=== PATIENT | female | born 1985 | race Caucasian/White ===

== ENCOUNTER 2016-08-31 14:08 | Emergency (ER) | payer OTHER ==
[~2016-08-31] VITALS: Ht 162.6 cm; Wt 138.6 kg
[2016-08-31 14:18] VITALS: BP 162/106; TEMP 36.8; Ht 162.6 cm; Wt 138.6 kg
--- NOTE | 2016-08-31 15:19 | DIAGNOSTIC IMAGING REPORT ---
L-SPINE MIN 4 VIEWS ROUTINE CLINICAL HISTORY: LEFT LOW BACK PAIN COMPARISON: None FINDINGS: There is 4 mm anterolisthesis of L5 on S1. There is moderate disc space narrowing with vacuum disc phenomenon and osteophytosis at this level. There may be bilateral L5 pars defects. Alignment is otherwise anatomic. There is no acute fracture. There is mild multilevel facet arthrosis. Sacroiliac joints are intact. IMPRESSION: 1. No acute lumbar spine fracture. 2. Grade I anterolisthesis of L5 on S1 with possible bilateral L5 pars defects. 3. Moderate disc space narrowing and osteophytosis at L5-S1. Electronically signed by: Fredi Julien M.D. 08/31/2016 3:17 PM Dictated Date/Time: 08/31/2016 3:15 PM
[2016-08-31] MEDS ORDERED: HYDROCODONE/ACETAMOPHEN 5/325MG TAB PO STA (15:36)
[2016-08-31] MEDS ORDERED: CYCL10TA6 PO (15:39)
[2016-08-31] MEDS ORDERED: HYDR-5688 PO (15:39)
--- NOTE | 2016-08-31 15:40 | EMERGENCY ROOM VISIT NOTE ---
ED Visit Note First contact with patient: 14:26 CHIEF COMPLAINT: Low back pain 2 days HISTORY OF PRESENT ILLNESS: Patient is a 22-year-old white female who presents to the emergency department for evaluation of left-sided low back pain that started about 2 days ago. She denies any falls or direct trauma but does know that she was slightly more active during the day prior to the pain starting. It is located in the midline of her low back radiating slightly to the left side and slightly into her buttock. It does not radiate down into her leg. Pain is essentially constant and worsened by any type of movement, including position changes, standing, sitting or walking. She states that it is dull in nature. She rates it a 4/10 presently. She has tried Aleve, a topical pain ointment, and stretches. She had pain similar to this in the past and was seen by the chiropractor. The pain resolved on its own. She denies any numbness, tingling or weakness in her lower extremities. No bowel or bladder incontinence or urinary symptoms. REVIEW OF SYSTEMS:Review of systems as per HPI. All other systems reviewed were negative. 10 systems reviewed. PMH: Electronic medical records are reviewed and summarized as above/below. See Problem List. SOCIAL HISTORY: Patient lives at home with her family. Nonsmoker. She is employed. PHYSICAL EXAM: Vital Signs: Reviewed Nurse's notes. CONSTITUTIONAL: Patient is a morbidly obese 30-year-old white female who was awake and alert and sitting upright on the gurney in mild distress due to her back pain. She has some discomfort noted with position changes. HEART: Regular rate and rhythm. LUNGS: Clear to auscultation. ABDOMEN: Soft, non-tender, no masses or organs felt. Bowel sounds normoactive. BACK: Tenderness in the left lumbar paraspinous, extending over the left hemipelvis. No tenderness over the spinous processes of the lumbar vertebrae. Range of motion is limited secondary to discomfort. She is able to toe and heel rise without difficulty. LEGS: Normal strength including dorsi-flexion and plantar flexion of the feet. Negative bilateral straight leg raising, normal and symmetrical knee and ankle reflexes. EMERGENCY DEPARTMENT COURSE: The patient was seen and evaluated as above. Her old records were reviewed. Initially she declined any medication for discomfort. Lumbar spine x-rays were obtained. She has evidence for anterolisthesis and disc space narrowing at the L5-S1 level. Her pain is largely in the low back and I suspect is more muscular or ligamentous. She did not have any radicular symptoms at this time. I do not suspect acute cord compression, disc herniation or cauda equina syndrome. Supportive care measures were discussed. She was encouraged to heat, rest, and use anti- inflammatory medicines. She was prescribed Waban and Flexeril for pain. She was given a note to be out of work for the next 4 days, and was advised to follow-up with her primary care physician if she is not feeling any better. Patient was reviewed in the [facility] Prescription Drug Monitoring Program, and there was no record noted for this patient. L-SPINE MIN 4 VIEWS ROUTINE CLINICAL HISTORY: LEFT LOW BACK PAIN COMPARISON: None FINDINGS: There is 4 mm anterolisthesis of L5 on S1. There is moderate disc space narrowing with vacuum disc phenomenon and osteophytosis at this level. There may be bilateral L5 pars defects. Alignment is otherwise anatomic. There is no acute fracture. There is mild multilevel facet arthrosis. Sacroiliac joints are intact. IMPRESSION: 1. No acute lumbar spine fracture. 2. Grade I anterolisthesis of L5 on S1 with possible bilateral L5 pars defects. 3. Moderate disc space narrowing and osteophytosis at L5-S1. Problem List Medical Problems: (1) Asthma Status: Chronic (2) Morbid obesity with BMI of 50.0-59.9, adult Status: Chronic Surgical Problems: (1) Hx of cholecystectomy Status: Resolved Current/Historical Medications Scheduled PRN Cyclobenzaprine Hcl (Flexeril), 10 MG PO TID PRN for Muscle Spasms Hydrocodone/Acetaminophen 5MG/325MG (Waban 5MG/325MG), 1-2 TABLETS PO Q4 PRN for Pain Allergies Coded Allergies: Cephalosporins (Verified Allergy, Unknown, CEFZIL, 08/31/16) Vital Signs Date Time Temp Pulse Resp B/P Pulse Ox O2 Delivery O2 Flow Rate FiO2 08/31/16 15:47 84 95 Room Air 08/31/16 14:18 36.8 80 18 162/106 96 Room Air Medications Administered Medications (Trade) Dose Ordered Sig/Jahaira Route Start Time Stop Time Status Last Admin Dose Admin Acetaminophen/ Hydrocodone Bitart (Waban 5/325 Tab) 2 tab NOW STAT PO 08/31/16 15:36 08/31/16 15:37 DC 08/31/16 15:46 2 TAB Departure Information Impression Primary Impression: Low back pain Qualified Codes: M54.5 - Low back pain Prescriptions Hydrocodone/Acetaminophen 5MG/325MG (Waban 5MG/325MG) Tab 1-2 TABLETS PO Q4 Y for Pain, #20 TAB For Initial Treatment Prov: Lakesha Beach PA 08/31/16 Cyclobenzaprine Hcl (FLEXERIL) 10 Mg Tab 10 MG PO TID Y for Muscle Spasms, #30 TAB Prov: Lakesha Beach PA 08/31/16 Referrals No Doctor, Assigned (PCP) Patient Instructions My [facility] Additional Instructions DO NOT drive, drink alcohol, operate machinery, or perform dangerous activities today. You were given medications in the ER that can affect your ability to safely function or operate a vehicle. Hydrocodone/Acetaminophen (Waban) 5/325 mg: Take 1-2 pills every four hours for breakthrough pain. Avoid alcohol, operating machinery or dangerous equipment, working on ladders or roofs, DRIVING, or situations where being under the influence may be dangerous. It is recommended to use an togp-sws-zcahpwy stool softener such as Colace, 100mg twice daily while taking this medication to avoid constipation. Cyclobenzaprine (Flexeril) 10 mg: Take 1 pills 3 times daily as needed for muscle spasms.. Avoid alcohol, operating machinery or dangerous equipment, working on ladders or roofs, DRIVING, or situations where being under the influence may be dangerous. Ibuprofen(Motrin, Advil) may be used for fever or pain. Use 600mg every six hours as needed. Take with food. Avoid using more than 2400mg in a 24 hour period. Do not use 2400mg per day for more than three consecutive days without physician direction. Prolonged inappropriate use can lead to stomach upset or ulcers. This medication can be taken if you need to drive, work, or perform activities which may be dangerous when taking narcotic pain medication. (AND/OR) Acetaminophen(Tylenol) may be used for fever or pain. Use 1000mg every six hours as needed. Avoid using more than 3000mg in a 24 hour period. This medication can be taken if you need to drive, work, or perform activities which may be dangerous when taking narcotic pain medication. Rest and avoid heavy lifting until your symptoms resolve and then gradually return to full activity. A good rule of thumb is if it hurts your back to perform a certain activity, then it should be avoided until you are healthy again. A heating pad, warm compresses, or a hot shower may help with tight muscles and can be done several times a day as needed. Continue current medications. Return to the ER immediately for any numbness, tingling, severe pain, loss of control of your bowels or bladder, inability to walk, or as needed. Follow up with your primary care physician within 3-5 days for a recheck of your current condition.
[2016-08-31 15:47] VITALS: PULSE 84; O2SAT 95
== END 2016-08-31 16:01 | disposition home or self-care (01) ==
LOC: C.EDB 14:09 → C.EDD 16:01
DX: M54.5 Low back pain (principal); E66.01 Morbid (severe) obesity due to excess calories; Z68.43 Body mass index [BMI] 50.0-59.9, adult; M43.17 Spondylolisthesis, lumbosacral region; J45.909 Unspecified asthma, uncomplicated

== ENCOUNTER → 2017-03-28 | Outpatient (CLI) | payer OTHER ==
[2017-03-28 12:56] LABS: ALT/SGPT 25 U/L (12-78); BLOOD UREA NITROGEN 21 mg/dl (7-18); BUN/CREATININE RATIO 25.8 (10-20); CALCIUM 9.2 mg/dl (8.5-10.1); CARBON DIOXIDE 29 mmol/L (21-32); CHLORIDE 104 mmol/L (98-107); CHOLESTEROL 133 mg/dl (0-200); CREATININE 0.81 mg/dl (0.60-1.20); GLUCOSE 87 mg/dl (70-99); SODIUM 138 mmol/L (136-145)
[2017-03-28 13:02] LABS: BASO % 0.6 %; BASO ABS # 0.04 K/uL (0-0.2); COMPLETE YES; EOS % 1.1 %; HEMATOCRIT 45.4 % (37-47); IG% 0.2 %; LYMPH % 27.8 %; LYMPH ABS # 1.81 K/uL (1.2-3.4); MEAN CELL VOLUME 83.3 fL (80-100); MEAN CORPUSCULAR HEMOGLOBIN 26.1 pg (25-34); MEAN CORPUSCULAR HGB CONC 31.3 g/dl (32-36); MONO % 7.8 %; NEUT % 62.5 %; PLATELET COUNT 303 K/uL (130-400); RED BLOOD COUNT 5.45 M/uL (4.2-5.4); WHITE BLOOD COUNT 6.52 K/uL (4.8-10.8)
[2017-03-28 13:07] LABS: ALB/GLOB RATIO 0.9 (0.9-2); ALKALINE PHOSPHATASE 81 U/L (45-117); AST/SGOT 14 U/L (15-37); HDL CHOLESTEROL 44 mg/dl; LDL CHOLESTEROL CALCULATED 72 mg/dl; TRIGLYCERIDES 83 mg/dl (0-150); VERY LOW DENSITY LIPOPROT CALC 17 mg/dl
[2017-03-28 13:11] LABS: ESTIMATED AVERAGE GLUCOSE 114 mg/dl; HA1C FLAG Normal (Normal)
== END | disposition home or self-care (01) ==
LOC: C.LABPVFM 10:47
PROVIDERS: ATTEND Neuromusculoskeletal Medicine & OMM
DX: Z00.00 Encounter for general adult medical examination without abnormal findings (principal); Z68.45 Body mass index [BMI] 70 or greater, adult

== ENCOUNTER → 2017-05-01 | Outpatient (CLI) | payer OTHER ==
--- NOTE | 2017-05-01 12:12 | DIAGNOSTIC IMAGING REPORT ---
RIGHT ANKLE MIN 3 VIEWS ROUTINE CLINICAL HISTORY: JOINT PAIN OF ANKLE AND FOOT RT Right pain COMPARISON: None. DISCUSSION: Degenerative osteophytic change of both medial as well as lateral malleolus. Ankle mortise is aligned anatomically. Small heel spur. No evidence for fracture or dislocation. There is no evidence for soft tissue swelling. IMPRESSION: Degenerative change of the medial and lateral malleolus. Small heel spur. The above report was generated using voice recognition software. It may contain grammatical, syntax or spelling errors. Electronically signed by: Sky Morris M.D. 05/01/2017 12:11 PM Dictated Date/Time: 05/01/2017 12:08 PM
--- NOTE | 2017-05-01 12:14 | DIAGNOSTIC IMAGING REPORT ---
RIGHT FOOT MIN 3 VIEWS ROUTINE CLINICAL HISTORY: JOINT PAIN OF ANKLE AND FOOT RT Right pain COMPARISON: None. DISCUSSION: Mild degenerative change of the intertarsal as well as tarsometatarsal joints. Small heel spur. No well-defined acute bony abnormality. There is no evidence for soft tissue swelling. IMPRESSION: Mild degenerative change. Small heel spur. No acute bony abnormality. The above report was generated using voice recognition software. It may contain grammatical, syntax or spelling errors. Electronically signed by: Sky Morris M.D. 05/01/2017 12:13 PM Dictated Date/Time: 05/01/2017 12:11 PM
== END | disposition home or self-care (01) ==
LOC: C.RADPV 11:55
PROVIDERS: ATTEND Nurse Practitioner
DX: M19.071 Primary osteoarthritis, right ankle and foot (principal); M77.31 Calcaneal spur, right foot

== ENCOUNTER 2018-10-17 13:38 | Inpatient (IN) ==
--- NOTE | 2018-10-17 14:04 | Emergency Department Note ---
History of Present Illness General Chief complaint: Shortness of Breath/Dyspnea Stated complaint: SOB,DIZZY Time Seen by Provider: 10/17/18 13:46 History of Present Illness Maximum Pain Intensity: 2 This patient is a 32-year-old female who presents to the emergency department complaining of shortness of breath that she noticed when she woke up this morning. It is worse with exertion and better with rest. She also experienced some pressure like chest pain in triage. That has now dissipated. She denies having these symptoms in the past. She has not taken anything cvuy-dwk-[id number] for her symptoms. She denies any recent illnesses such as fever or cough. No history of cardiac or pulmonary disease. She does not smoke. No oral contraceptives. No recent travel or trauma. 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 Beliefs That Will Affect Care: None Current Living Situation: Parent Other Information That Helps Us Care for You: No Feels Safe at Home: Yes Safety Concerns: Feels Safe At This Time Smoking Status: Never smoker Hx Alcohol Use: Yes Hx Substance Use: No Review of Systems A total of 10 systems reviewed and were otherwise negative Physical Exam Vital Signs Vital Signs - 24 hr 10/17/18 13:38 10/17/18 13:40 10/17/18 15:31 Temperature 36.5 C Temperature Source Oral Sepsis Recent Fever Within 48 Hours No Sepsis New/Unexplained Change in Mental Status No Sepsis Action Taken by Nursing No Action Required Pulse Rate 84 73 Pulse Rate from SpO2 Sensor 71 Respiratory Rate 18 24 Respiratory Effort / Characteristics Spontaneous Non-Labored Spontaneous Respiratory Depth Normal Normal Respiratory Pattern Regular Regular Blood Pressure 196/90 H 179/101 H Blood Pressure Mean 125 127 Blood Pressure Position Sitting Pulse Oximetry 97 95 Pulse Oximetry [Exercises] Oxygen Delivery Method Room Air Room Air Room Air 10/17/18 16:00 10/17/18 16:09 10/17/18 16:30 Temperature Temperature Source Sepsis Recent Fever Within 48 Hours Sepsis New/Unexplained Change in Mental Status Sepsis Action Taken by Nursing Pulse Rate 81 71 Pulse Rate from SpO2 Sensor 71 Respiratory Rate 25 H 21 Respiratory Effort / Characteristics Respiratory Depth Respiratory Pattern Blood Pressure 165/93 H Blood Pressure Mean 117 Blood Pressure Position Pulse Oximetry 99 Pulse Oximetry [Exercises] 86 L Oxygen Delivery Method Room Air Room Air 10/17/18 17:00 10/17/18 17:30 Temperature Temperature Source Sepsis Recent Fever Within 48 Hours Sepsis New/Unexplained Change in Mental Status Sepsis Action Taken by Nursing Pulse Rate 73 77 Pulse Rate from SpO2 Sensor 73 77 Respiratory Rate 25 H 26 H Respiratory Effort / Characteristics Respiratory Depth Respiratory Pattern Blood Pressure Blood Pressure Mean Blood Pressure Position Pulse Oximetry 97 98 Pulse Oximetry [Exercises] Oxygen Delivery Method Room Air Room Air Constitutional WD/WN, vitals as above Morbidly obese female Eyes EOM intact bilaterally ENMT external ear and nose normal, oropharynx normal Neck trachea midline Respiratory normal respiratory effort, lungs clear to auscultation Cardiovascular RRR, no murmur, no edema Gastrointestinal (Abdomen) Soft. Bowel sounds present. Musculoskeletal no cyanosis or clubbing, extremities motor strength 5/5 Skin no rashes, warm and dry Neurologic Alert and oriented x3. No focal motor deficits. Psychiatric Acting appropriately Course Patient was seen and examined Vital signs including blood pressure were reviewed medications list was verified with patient Labs were obtained, and a saline lock was established And EKG was performed and reviewed. The patient was put on a monitor. Imaging was performed and reviewed. Upon reevaluation, the patient said her breathing was slightly better. We discussed her workup. She voiced understanding. She was also seen by my supervising physician who is in agreement with my plan. After CT, the patient was reevaluated. An ambulatory trial was performed. The patient dropped her oxygen saturation to 86%. The case was discussed with case management. He was subsequently discussed with the [facility] hospitalist in addition to pulmonary staff nuclear weapons officer. The [facility] hospitalist group kindly agreed to evaluate the patient for possible inpatient workup and treatment. The patient was in agreement. Consultations Consultation #1: Dr. Pisano Consultation #2: Dr. Haile Administered Medications Ioversol (Optiray 320 125ml) 119 ml IV ONCE PRN PRN Reason: Interaction Checking Stop: 10/21/18 15:15 Last Admin: 10/17/18 15:16 Dose: 119 ml Documented by: [id number] Medical Decision Making Medical Records Attestation: I reviewed the patient's medical records. Home Medications Current Medication List: was personally reviewed by me Laboratory Data Attestation: I reviewed the patient's lab results. Result diagrams: 10/17/18 14:11 10/17/18 14:11 Lab Results 10/17/18 10/17/18 10/17/18 Range/Units 14:11 14:11 14:11 WBC 6.77 (4.8-10.8) K/uL RBC 4.89 (4.2-5.4) M/uL Hgb 13.1 (12.0-16.0) g/dL Hct 41.1 (37-47) % MCV 84.0 (80-100) fL MCH 26.8 (25-34) pg MCHC 31.9 L (32-36) g/dL RDW Std Deviation 44.4 (36.4-46.3) fL RDW Coeff of Adali 14.5 (11.5-14.5) % Plt Count 228 (130-400) K/uL MPV 9.8 (7.4-10.4) fL Immature Gran % (Auto) 0.3 % Neut % (Auto) 72.6 % Lymph % (Auto) 20.1 % Gregg % (Auto) 4.9 % Eos % (Auto) 1.5 % Baso % (Auto) 0.6 % Immature Gran # (Auto) 0.02 (0.00-0.02) K/uL Neut # (Auto) 4.92 (1.4-6.5) K/uL Lymph # (Auto) 1.36 (1.2-3.4) K/uL Gregg # (Auto) 0.33 (0.11-0.59) K/uL Eos # (Auto) 0.10 (0-0.5) K/uL Baso # (Auto) 0.04 (0-0.2) K/uL PT 10.9 (9.0-12.0) Seconds INR 1.1 (0.9-1.1) D-Dimer (0-500) ug/L FEU Sodium 137 (136-145) mmol/L Potassium 3.7 (3.5-5.1) mmol/L Chloride 104 (98-107) mmol/L Carbon Dioxide 28 (21-32) mmol/L Anion Gap 6.0 (3-11) BUN 18 (7-18) mg/dl Creatinine 0.75 (0.6-1.2) mg/dl Est Cr Clr Drug Dosing 170.5 ml/min Est GFR ( Amer) 124.0 Est GFR (Non-Af Amer) 107.0 BUN/Creatinine Ratio 24.4 H (10-20) Glucose 80 (70-99) mg/dl Calcium 8.4 L (8.5-10.1) mg/dl Total Bilirubin 0.7 (0.2-1) mg/dl AST 16 (15-37) U/L ALT 26 (12-78) U/L Alkaline Phosphatase 67 (45-117) U/L Troponin I < 0.015 (0-0.045) ng/ml NT-Pro-B Natriuret Pep 139 (0-450) pg/ml Total Protein 7.8 (6.4-8.2) gm/dl Albumin 3.7 (3.4-5.0) gm/dl Globulin 4.1 H (2.5-4.0) gm/dl Albumin/Globulin Ratio 0.9 (0.9-2) 10/17/18 10/17/18 Range/Units 14:11 14:11 WBC (4.8-10.8) K/uL RBC (4.2-5.4) M/uL Hgb (12.0-16.0) g/dL Hct (37-47) % MCV (80-100) fL MCH (25-34) pg MCHC (32-36) g/dL RDW Std Deviation (36.4-46.3) fL RDW Coeff of Adali (11.5-14.5) % Plt Count (130-400) K/uL MPV (7.4-10.4) fL Immature Gran % (Auto) % Neut % (Auto) % Lymph % (Auto) % Gregg % (Auto) % Eos % (Auto) % Baso % (Auto) % Immature Gran # (Auto) (0.00-0.02) K/uL Neut # (Auto) (1.4-6.5) K/uL Lymph # (Auto) (1.2-3.4) K/uL Gregg # (Auto) (0.11-0.59) K/uL Eos # (Auto) (0-0.5) K/uL Baso # (Auto) (0-0.2) K/uL PT (9.0-12.0) Seconds INR (0.9-1.1) D-Dimer 510 H* (0-500) ug/L FEU Sodium (136-145) mmol/L Potassium (3.5-5.1) mmol/L Chloride (98-107) mmol/L Carbon Dioxide (21-32) mmol/L Anion Gap (3-11) BUN (7-18) mg/dl Creatinine (0.6-1.2) mg/dl Est Cr Clr Drug Dosing ml/min Est GFR ( Amer) Est GFR (Non-Af Amer) BUN/Creatinine Ratio (10-20) Glucose (70-99) mg/dl Calcium (8.5-10.1) mg/dl Total Bilirubin (0.2-1) mg/dl AST (15-37) U/L ALT (12-78) U/L Alkaline Phosphatase (45-117) U/L Troponin I (0-0.045) ng/ml NT-Pro-B Natriuret Pep Cancelled (0-450) pg/ml Total Protein (6.4-8.2) gm/dl Albumin (3.4-5.0) gm/dl Globulin (2.5-4.0) gm/dl Albumin/Globulin Ratio (0.9-2) Imaging Data Attestation: I personally reviewed and interpreted this imaging study as follows: Radiologist's Impression: Chest x-ray IMPRESSION: 1. Cardiomegaly with pulmonary vascular prominence suggesting volume overload. This is atypical in a patient of this age. Correlate clinically to exclude risk factors for pulmonary embolus or pulmonary artery hypertension. Electronically signed by: Marcus Pennington M.D. 10/17/2018 2:21 PM CTA chest IMPRESSION: 1. No evidence for central pulmonary embolus. 2. Small patchy densities within the superior segment of the left lower lobe. This may represent a pneumonia. Atelectasis could also have a similar appearance. 3. Mosaic attenuation throughout the lungs consistent with air trapping. This raises the possibility of small airways disease. 4. A 4 mm indeterminate pulmonary nodule within the left lower lobe. 5. Prominent mediastinal and axillary lymph nodes as well as a single mildly enlarged right hilar lymph node. The spleen is also enlarged. This is indeterminate. A lymphoproliferative disorder could result in this appearance but is considered less likely. Clinical correlation recommended. Electronically signed by: Brendan Sumner M.D. 10/17/2018 3:43 PM Dictated: 10/17/18 1530 ECG Data Indication: chest pain Rate (beats per minute): 78 Rhythm: normal sinus Comparison ECG Date: no prior available Additional Comments: Incomplete right bundle branch block. Blood Pressure Blood Pressure Findings: Elevated blood pressure Blood Pressure Disposition: Referred to patients primary care provider MDM Narrative Differential diagnosis: Pulmonary embolus, myocarditis, acute myocardial infarction, cardiac arrhythmia, anemia, thyroid abnormality, pneumothorax, pneumonia, bronchitis, pericarditis, electrolyte imbalance, among others This patient is a 32-year-old female who presents to the emergency department complaining of dyspnea, worse with exertion and chest pain that started this morning when she woke up. On exam, she was initially not hypoxic. She was afebrile. Her lungs sounded fairly clear. Her labs reveal no leukocytosis. Troponin is negative. EKG did not show any signs of ischemia or infarction. Due to a history of morbid obesity and chest x-ray findings, we proceeded with a CT. This was consistent with a possible pneumonia and mosaic appearance. The etiology of this is unclear as the patient has not had any infectious symptoms. During the ambulatory trial, the patient became hypoxic; therefore, it was felt that the patient should be evaluated by the hospitalist service for possible inpatient treatment. The patient was in agreement. Impression & Plan Pneumonia Discharge Plan Visit Data Chief Complaint: Shortness of Breath/Dyspnea Stated Complaint: SOB,DIZZY ED Provider: Terry Ferreira ED Midlevel Provider: Maribel Quintana Discharge Problem: Pneumonia Patient Disposition: Admitted As Inpatient Condition: Fair Forms Stand Alone Forms: My [facility] Prescriptions Prescriptions: No Action diclofenac sodium 75 mg tablet,delayed release (DR/EC) 75 mg PO BID RF: 0 Referrals Referrals: Erika Salter CRNP [Primary Care Provider] -
--- NOTE | 2018-10-17 14:22 | XRay Report ---
XR chest 1V portable CLINICAL HISTORY: 32 years-old Female presenting with syncope. TECHNIQUE: Portable upright AP view of the chest was obtained. COMPARISON: None. FINDINGS: Cardiac silhouette mildly enlarged with pulmonary vascular prominence. Prominence of bilateral laura l ikely vascular. No focal opacity. No large effusion or pneumothorax. Osseous structures normal. Upper abdomen normal. IMPRESSION: 1. Cardiomegaly with pulmonary vascular prominence suggesting volume overload. This is atypical in a patient of this age. Correlate clinically to exclude risk factors for pulmonary embolus or pulmonary artery hypertension. Electronically signed by: Marcus Pennington M.D. 10/17/2018 2:21 PM
[2018-10-17 14:23] LABS: Basophils # (auto) 0.04 K/uL (0-0.2); Basophils % (auto) 0.6 %; Eosinophils % (auto) 1.5 %; Hematocrit (blood only) 41.1 % (37-47); Hemoglobin 13.1 g/dL (12.0-16.0); Immature Granulocytes # (auto) 0.02 K/uL (0.00-0.02); Immature Granulocytes % (auto) 0.3 %; Lymphocytes # (auto) 1.36 K/uL (1.2-3.4); Lymphocytes % (auto) 20.1 %; Mean Corpuscular Hgb Conc 31.9 g/dL (32-36); Mean Platelet Volume 9.8 fL (7.4-10.4); Monocytes # (auto) 0.33 K/uL (0.11-0.59); Monocytes % (auto) 4.9 %; Neutrophils # (auto) 4.92 K/uL (1.4-6.5); Neutrophils % (auto) 72.6 %; Platelet Count 228 K/uL (130-400); RDW Coefficient of Variation 14.5 % (11.5-14.5); RDW Standard Deviation 44.4 fL (36.4-46.3); Red Blood Count 4.89 M/uL (4.2-5.4); White Blood Count 6.77 K/uL (4.8-10.8)
[2018-10-17 14:35] LABS: INR 1.1 (0.9-1.1); Prothrombin Time 10.9 Seconds (9.0-12.0)
[2018-10-17 14:42] LABS: Alanine Aminotransferase 26 U/L (12-78); Albumin Level 3.7 gm/dl (3.4-5.0); Aspartate Aminotransferase 16 U/L (15-37); BUN Creatinine Ratio 24.4 (10-20); Blood Urea Nitrogen 18 mg/dl (7-18); Calcium 8.4 mg/dl (8.5-10.1); Carbon Dioxide 28 mmol/L (21-32); Chloride 104 mmol/L (98-107); Creatinine Clr Calc Pharmacy 170.5 ml/min; Glucose 80 mg/dl (70-99); Potassium 3.7 mmol/L (3.5-5.1); Sodium 137 mmol/L (136-145)
[2018-10-17 14:47] LABS: Albumin Globulin Ratio 0.9 (0.9-2); Alkaline Phosphatase 67 U/L (45-117); Bilirubin,Total 0.7 mg/dl (0.2-1); Globulin 4.1 gm/dl (2.5-4.0); Total Protein 7.8 gm/dl (6.4-8.2); Troponin I < 0.015 ng/ml (0-0.045)
[2018-10-17] MEDS ORDERED: OPTIRAY 320 125ml IV PRN (15:16)
[2018-10-17 15:25] LABS: NT Pro B Type Natriuretic Pept 139 pg/ml (0-450)
--- NOTE | 2018-10-17 15:45 | CT Scan Report ---
CHEST CTA for PULMONARY ARTERIES CT DOSE: 742.91 mGy.cm HISTORY: Atypical chest pain. Short of breath. TECHNIQUE: Multiaxial CT images of the chest were performed following the intravenous administration of contrast to evaluate the pulmonary arteries. Maximal intensity projection images were also obtaine d. A dose lowering technique was utilized adhering to the principles of ALARA. COMPARISON STUDY: None. FINDINGS: Normal caliber thoracic aorta with no evidence for dissection area the heart is normal in s ize. No pleural or pericardial effusions. The majority of the segmental and subsegmental pulmonary ar teries are essentially nondiagnostic due to the artifact from the patient's large body habitus. The m ain and lobar pulmonary arteries are patent. There is a slightly enlarged right hilar lymph node dianne uring 12 mm in short axis diameter. Prominent axillary lymph nodes measure subcentimeter in traction diameter. Hepatic steatosis. The spleen is enlarged measuring 17 cm. Cholecystectomy. Prominent media stinal and left hilar lymph nodes measure subcentimeter in short axis diameter. Healed right lateral sixth rib fracture. No acute fractures identified. No pneumothorax. The central airways are patent. S mall patchy densities within the superior segment of the left lower lobe medially. Mosaic attenuation within the lungs consistent with air trapping. This may represent small airways disease. A 4 mm nodu le within the left lower lobe on image 141. Nodular thickening along the right minor fissure which me asures 8 mm. This is likely benign and has a flattened appearance on the coronal views. IMPRESSION: 1. No evidence for central pulmonary embolus. 2. Small patchy densities within the superior segment of the left lower lobe. This may represent a pn eumonia. Atelectasis could also have a similar appearance. 3. Mosaic attenuation throughout the lungs consistent with air trapping. This raises the possibility of small airways disease. 4. A 4 mm indeterminate pulmonary nodule within the left lower lobe. 5. Prominent mediastinal and axillary lymph nodes as well as a single mildly enlarged right hilar lym ph node. The spleen is also enlarged. This is indeterminate. A lymphoproliferative disorder could res ult in this appearance but is considered less likely. Clinical correlation recommended. Electronically signed by: Brendan Sumner M.D. 10/17/2018 3:43 PM
[2018-10-17 16:33] LABS: D Dimer 510 ug/L FEU (0-500)
--- NOTE | 2018-10-17 17:14 | History & Physical Report ---
Date of Service October 17, 2018 Assessment & Plan (1) Pneumonia: 32 y/o F Hx Morbid obesity only. She states she woke up AM with shortness of breath. She denies a fever or congestion. She does have a slight cough which has not been particularly productive. A CXR was equivocal and she procee ded to CT therefore. This demonstrated small patchy densities within the superior segment of the left lower lobe which may be consistent with PNM or atalectasis. Additional findings included mosaic attenuation throughout the lungs consistent with air trapping raising the possibility of small airway disease, a 4 mm indeterminate pulmonary nodule within the left lower lobe and prominent mediastinal and axillary lymph nodes as well as a single mildly enlarged right hilar lymph node. The spleen is also enlarged. A lymphoproliferative process could not be ruled out although the diagnosis is less likely per the radiology read. The pt appeared fairly comfortable in the ER and was sating at 97% lying down. However, she went down to 86% with any ambulation. She is admitted overnight therefore for treatment of presumed PNM. We will treat with doxycycline and scheduled nebs overnight. If she does not show improvement or worsens, pulmonary has offered to consult. Regardless of whether or not she improves in the short-term, she will need outpt follow-up, likely with a assembler final initially do to the findings on her CT which are not likely related to acute infection including small airway disease and an enlarged spleen. Full code - Heparin prophylaxis Total time for this admit including review of labs, meds, imaging, records - discussion with pt and ER attending - 37 min Present on Admission?: Yes History of Present Illness Chief Complaint: Shortness of breath, mild cough Primary Care Provider: MORAIMA Erickson 32 y/o F Hx Morbid obesity only. She states she woke up AM with shortness of breath. She denies a fever or congestion. She does have a slight cough which has not been particularly productive. A CXR was equivocal and she proceeded to CT therefore. This demonstrated small patchy densities within the superior segment of the left lower lobe which may be consistent with PNM or atalectasis. Additional findings included mosaic attenuation throughout the lungs consistent with air trapping raising the possibility of small airway disease, a 4 mm indeterminate pulmonary nodule within the left lower lobe and prominent mediastinal and axillary lymph nodes as well as a single mildly enlarged right hilar lymph node. The spleen is also enlarged. A lymphoproliferative process could not be ruled out although the diagnosis is less likely per the radiology read. The pt appeared fairly comfortable in the ER and was sating at 97% lying down. However, she went down to 86% with any ambulation. She is admitted overnight therefore for treatment of presumed PNM. PMH: Denies aside from obesity. She takes an Diclofenac for chronic pain in her ankles. Surgical: Cholecystectomy 2006 Family: Both parents alive and well - no CAD, CA reported Social: Does not drink or smoke Employed as a cook at the [employer] Allergies Allergy/AdvReac Type Severity Reaction Status Date / Time Cephalosporins Allergy Unknown CEFZIL Verified 08/31/16 14:35 Home Medications Home Medications Medication Instructions Recorded Confirmed Type diclofenac sodium 75 mg PO BID 10/17/18 10/17/18 History Past Med/Surg History Medical History Back pain Social History Preferred Language: Turkmen Communication Ability: Effective Lithopone Charger Required: No Beliefs That Will Affect Care: None Current Living Situation: Parent Other Information That Helps Us Care for You: No Feels Safe at Home: Yes Safety Concerns: Feels Safe At This Time Smoking Status: Never smoker Hx Alcohol Use: Yes Hx Substance Use: No Review of Systems Gen: Denies fevers, night sweats, rigors, fatigue, malaise, weight loss/gain ENT: Denies congestion, throat pain, hearing loss Eyes: Denies acute visual changes CV: Denies CP, palpitations Pulmonary: SOB and slight cough x 1 day GI: Denies N/V, diarrhea, constipation Neuro: Denies acute or unilateral weakness, acute gait impairment, headache or acute visual changes Musculoskeletal: Denies joint pain, inflammation Endocrine: Denies polydipsia, polyuria Skin: Denies acute rashes or ulcers Physical Exam Vital Signs (Past 24 Hours): Last Vital Signs Temp 36.5 C 10/17/18 13:40 Pulse 73 10/17/18 15:31 Resp 24 10/17/18 15:31 BP 179/101 H 10/17/18 15:31 Pulse Ox 86 L 10/17/18 16:09 Physical Exam: General: Overweight, young F, AAO x 3, no distress ENT: No erythema or exudates, no thrush Eyes: GEORGINA, EOMI Head and neck: Normocephalic, atraumatic, neck is supple. Chest/heart: Nontender, S1,2, RRR, no murmurs, no gallops Lungs: CTAB, no wheezing or crackles Abdomen: Nontender, nondistended, BS+ Neuro: AAO x 3, speech is clear, no unilateral weakness or loss of sensation, coordination intact Musculoskeletal: No joint inflammation, muscle tenderness, FROM Skin: No acute rashes or ulcers Extremities: No clubbing, cyanosis, edema Results & Data Diagnostic Findings CT Chest: 1. No evidence for central pulmonary embolus. 2. Small patchy densities within the superior segment of the left lower lobe. This may represent a pneumonia. Atelectasis could also have a similar appearance. 3. Mosaic attenuation throughout the lungs consistent with air trapping. This raises the possibility of small airways disease. 4. A 4 mm indeterminate pulmonary nodule within the left lower lobe. 5. Prominent mediastinal and axillary lymph nodes as well as a single mildly enlarged right hilar lymph node. The spleen is also enlarged. This is indeterminate. A lymphoproliferative disorder could result in this appearance but is considered less likely. Clinical correlation recommended.
[2018-10-17] MEDS ORDERED: POLYETHYLENE (MIRALAX) 17 GM PACK PO PRN (19:36)
[2018-10-17] MEDS ORDERED: ACETAMINOPHEN 325 MG TAB PO PRN (19:36)
[2018-10-17] MEDS ORDERED: ZOLPIDEM TARTRATE 5 MG TAB PO PRN (19:36)
[2018-10-17] MEDS ORDERED: MAGNESIUM HYDROXIDE SUSP 30 ML UDC PO PRN (19:36)
[2018-10-17] MEDS ORDERED: ONDANSETRON INJ 2 MG/ML 2 ML VIAL IV PRN (19:36)
[2018-10-17] MEDS ORDERED: ALUMINUM/MAGNESIUM SUSP 30 ML UDC PO PRN (19:36)
[2018-10-17] MEDS ORDERED: ALBUT/IPRATROP 3MG/0.5MG NEB 3 ML VIAL NEB PRN (20:13)
[2018-10-17] MEDS: ALBUT/IPRATROP 3MG/0.5MG NEB 3 ML VIAL NEB SCH (20:14)
[2018-10-17] MEDS: DOXYCYCLINE HYCLATE 100 MG in DEXTROSE 5% 100 ML IV SCH (20:41)
[2018-10-17] MEDS: DICLOFENAC SODIUM 75 MG TABCR PO SCH (21:40)
[2018-10-17] MEDS: HEPARIN SOD 5,000 UNIT/0.5 ML VIAL SQ SCH (21:40)
[2018-10-18] MEDS: HEPARIN SOD 5,000 UNIT/0.5 ML VIAL SQ SCH ×2 (05:33→13:44)
[2018-10-18] MEDS: ALBUT/IPRATROP 3MG/0.5MG NEB 3 ML VIAL NEB SCH ×3 (06:52→15:06)
[2018-10-18] MEDS: DICLOFENAC SODIUM 75 MG TABCR PO SCH (07:50)
[2018-10-18] MEDS: DOXYCYCLINE HYCLATE 100 MG in DEXTROSE 5% 100 ML IV SCH (07:50)
--- NOTE | 2018-10-18 10:56 | Medical Student H&P ---
Date of Service October 18, 2018 Assessment & Plan (1) Morbid obesity: (2) Hypertension: (3) Shortness of breath: History of Present Illness Primary Care Provider: MORAIMA Erickson Lourdes Swanson is a 32 y/o female with a h/o of morbid obesity and chronic ankle and back pain in hospital day 2 for shortness of breath. No acute events over night. Today she is feeling well and symptoms have since resolved which was helped after a nebulizer treatment. She was also given doxycycline for atypical pneumonia. #SOB and cough She said that yesterday morning she went to work and started feeling SOB. She walked 10 feet and was gasping for air. She also had a mild cough. She also felt dizzy and lightheaded with no LOC. 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 She denies fevers, chills, cold symptoms, or night sweats. She states that she has never had an episode like this before. She reports that sometimes when she walks long distances she will get SOB but doesn't walk much because of her chronic ankle pain. She denies any history of asthma and has no family history. She notes that she will wheeze when she gets sick but doesn't feel sick currently. She also reports that sometimes she coughs at night but thinks its because her house is dry and hasn't noticed an increase in cough recently. She doesn't notice a difference in her cough when she eats certain foods. She wakes up frequently at night and has always had difficulty sleeping. She is able to fall asleep quickly but then gets up multiple times at night which she attributes to her back and ankle pain and has never had a known episode where she has stopped breathing. She notes that she has been feeling more fatigued but attributes that to taking up more shifts at work. #Morbid obesity She says that she has gained weight in the last 2 years because she has been immobile due to her ankle and back pain. As for diet, she says that she hasn't been monitoring what she eats. She tries to drink water and drinks about 3 bottles of sparkling flavored water a day. She will eat her 3 meals at work her largest meal being dinner. She eats mostly sausages and burgers for each meal. She eats some fruit and doesn't like vegetables. She tries to avoid bread at lunch. She says she does a lot of snacking at night and will eat pretzels and popcorn. She states that nobody has talked to her about her diet and did not know the foods she was eating were high in salt and is interested in making some changes if it would mean not having a similar episode to the one she had yesterday. She denies any leg swelling. #Ankle pain She has had ongoing back and ankle pain and was recently diagnosed with sciatica. She takes diclofenac which has helped and was on a dose of prednisone that was tapered. She notes that medication has helped but she still feels pain, rating it as a 3/10 in the beginning of the week and 7/10 by the end of the week. At work she is constantly on her feet which worsens the pain. #HTN She notes that she never checks her blood pressure. She denies any chest pain or palpitations. Allergies Allergy/AdvReac Type Severity Reaction Status Date / Time Cephalosporins Allergy Unknown CEFZIL Verified 08/31/16 14:35 Home Medications Home Medications Medication Instructions Recorded Confirmed Type diclofenac sodium 75 mg PO BID 10/17/18 10/17/18 History Patient History Medical History Back pain Social History Preferred Language: Burmese Beliefs That Will Affect Care: None Current Living Situation: Parent Other Information That Helps Us Care for You: No Feels Safe at Home: Yes Safety Concerns: Feels Safe At This Time Smoking Status: Never smoker Hx Alcohol Use: Yes Hx Substance Use: No Review of Systems Constitutional: as per Subjective / HPI Ear, Nose, Mouth, Throat: as per Subjective / HPI Respiratory: as per Subjective / HPI Cardiovascular: as per Subjective / HPI Gastrointestinal: as per Subjective / HPI Physical Exam Vital Signs (Past 24 Hours): Last Vital Signs Temp 36.5 C 10/18/18 07:16 Pulse 66 10/18/18 07:16 Resp 16 10/18/18 07:16 BP 143/86 H 10/18/18 07:16 Pulse Ox 93 10/18/18 07:16 Constitutional: WD/WN, vitals as above Neck: trachea midline Respiratory: normal respiratory effort, lungs clear to auscultation Cardiovascular: RRR, no murmur, no edema Extremities: + edema (1+) Gastrointestinal (Abdomen): normal bowel sounds, soft, nontender, no hepatosplenomegaly Musculoskeletal: no cyanosis or clubbing, extremities motor strength 5/5 Skin: no rashes, warm and dry Psychiatric: A+Ox3, euthymic affect Results & Data Medications Administered Albuterol (Duoneb) 3 ml NEB QIDR [facility] Stop: 11/16/18 19:59 Last Admin: 10/18/18 06:52 Dose: 3 ml Documented by: [id number] Admin: 10/17/18 20:14 Dose: 3 ml Documented by: [id number] Diclofenac Sodium (Voltaren) 75 mg PO BID [facility] Stop: 11/16/18 20:59 Last Admin: 10/18/18 07:50 Dose: 75 mg Documented by: [id number] Admin: 10/17/18 21:40 Dose: 75 mg Documented by: [id number] Heparin Sodium (Porcine) (Heparin Sodium (Porcine)) 5,000 units SQ Q8 [facility] Stop: 11/16/18 21:59 Last Admin: 10/18/18 05:33 Dose: Not Given Documented by: [id number] Admin: 10/17/18 21:40 Dose: Not Given Documented by: [id number] Doxycycline Hyclate 100 mg/ (Dextrose) 110 mls @ 50 mls/hr IV Q12H [facility] Stop: 10/24/18 20:29 Last Infusion: 10/18/18 10:02 Dose: 0 mls/hr Documented by: [id number] Admin: 10/18/18 07:50 Dose: 50 mls/hr Documented by: [id number] Infusion: 10/17/18 23:31 Dose: 0 mls/hr Documented by: [id number] Admin: 10/17/18 20:41 Dose: 50 mls/hr Documented by: [id number] Ioversol (Optiray 320 125ml) 119 ml IV ONCE PRN PRN Reason: Interaction Checking Stop: 10/21/18 15:15 Last Admin: 10/17/18 15:16 Dose: 119 ml Documented by: [id number]
[2018-10-18] MEDS ORDERED: DOXYCYCLINE HYCLATE 100 MG CAP PO STA (17:15)
--- NOTE | 2018-10-18 18:46 | Discharge Summary ---
Date of Service October 18, 2018 Admission HPI Per Admitting Provider 32 y/o F Hx Morbid obesity only. She states she woke up AM with shortness of breath. She denies a fever or congestion. She does have a slight cough which has not been particularly productive. A CXR was equivocal and she proceeded to CT therefore. This demonstrated small patchy densities within the superior segment of the left lower lobe which may be consistent with PNM or atalectasis. Additional findings included mosaic attenuation throughout the lungs consistent with air trapping raising the possibility of small airway disease, a 4 mm indeterminate pulmonary nodule within the left lower lobe and prominent mediastinal and axillary lymph nodes as well as a single mildly enlarged right hilar lymph node. The spleen is also enlarged. A lymphoproliferative process could not be ruled out although the diagnosis is less likely per the radiology read. The pt appeared fairly comfortable in the ER and was sating at 97% lying down. However, she went down to 86% with any ambulation. She is admitted overnight therefore for treatment of presumed PNM. PMH: Denies aside from obesity. She takes an Diclofenac for chronic pain in her ankles. 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 No neuro deficits. Skin shows no rashes no pallor or icterus Discharge Data Allergies Allergy/AdvReac Type Severity Reaction Status Date / Time Cephalosporins Allergy Unknown CEFZIL Verified 08/31/16 14:35 Consultations 10/17/18 16:13 ED Decision to Admit Stat Ordered Studies 10/17/18 14:51 CT angio chest PE protocol Stat CHEST CTA for PULMONARY ARTERIES CT DOSE: 742.91 mGy.cm HISTORY: Atypical chest pain. Short of breath. TECHNIQUE: Multiaxial CT images of the chest were performed following the intravenous administration of contrast to evaluate the pulmonary arteries. Maximal intensity projection images were also obtained. A dose lowering technique was utilized adhering to the principles of ALARA. COMPARISON STUDY: None. FINDINGS: Normal caliber thoracic aorta with no evidence for dissection area the heart is normal in size. No pleural or pericardial effusions. The majority of the segmental and subsegmental pulmonary arteries are essentially nondiagnostic due to the artifact from the patient's large body habitus. The main and lobar pulmonary arteries are patent. There is a slightly enlarged right hilar lymph node measuring 12 mm in short axis diameter. Prominent axillary lymph nodes measure subcentimeter in traction diameter. Hepatic steatosis. The spleen is enlarged measuring 17 cm. Cholecystectomy. Prominent mediastinal and left hilar lymph nodes measure subcentimeter in short axis diameter. Healed right lateral sixth rib fracture. No acute fractures identified. No pneumothorax. The central airways are patent. Small patchy densities within the superior segment of the left lower lobe medially. Mosaic attenuation within the lungs consistent with air trapping. This may represent small airways disease. A 4 mm nodule within the left lower lobe on image 141. Nodular thickening along the right minor fissure which measures 8 mm. This is likely benign and has a flattened appearance on the coronal views. IMPRESSION: 1. No evidence for central pulmonary embolus. 2. Small patchy densities within the superior segment of the left lower lobe. This may represent a pneumonia. Atelectasis could also have a similar appearance. 3. Mosaic attenuation throughout the lungs consistent with air trapping. This raises the possibility of small airways disease. 4. A 4 mm indeterminate pulmonary nodule within the left lower lobe. 5. Prominent mediastinal and axillary lymph nodes as well as a single mildly enlarged right hilar lymph node. The spleen is also enlarged. This is indeterminate. A lymphoproliferative disorder could result in this appearance but is considered less likely. Clinical correlation recommended. Electronically signed by: Brendan Sumner M.D. 10/17/2018 3:43 PM Lab Results 10/17/18 10/17/18 10/17/18 Range/Units 14:11 14:11 14:11 WBC 6.77 (4.8-10.8) K/uL RBC 4.89 (4.2-5.4) M/uL Hgb 13.1 (12.0-16.0) g/dL Hct 41.1 (37-47) % MCV 84.0 (80-100) fL MCH 26.8 (25-34) pg MCHC 31.9 L (32-36) g/dL RDW Std Deviation 44.4 (36.4-46.3) fL RDW Coeff of Adali 14.5 (11.5-14.5) % Plt Count 228 (130-400) K/uL MPV 9.8 (7.4-10.4) fL Immature Gran % (Auto) 0.3 % Neut % (Auto) 72.6 % Lymph % (Auto) 20.1 % Payette % (Auto) 4.9 % Eos % (Auto) 1.5 % Baso % (Auto) 0.6 % Immature Gran # (Auto) 0.02 (0.00-0.02) K/uL Neut # (Auto) 4.92 (1.4-6.5) K/uL Lymph # (Auto) 1.36 (1.2-3.4) K/uL Payette # (Auto) 0.33 (0.11-0.59) K/uL Eos # (Auto) 0.10 (0-0.5) K/uL Baso # (Auto) 0.04 (0-0.2) K/uL PT 10.9 (9.0-12.0) Seconds INR 1.1 (0.9-1.1) D-Dimer (0-500) ug/L FEU Sodium 137 (136-145) mmol/L Potassium 3.7 (3.5-5.1) mmol/L Chloride 104 (98-107) mmol/L Carbon Dioxide 28 (21-32) mmol/L Anion Gap 6.0 (3-11) BUN 18 (7-18) mg/dl Creatinine 0.75 (0.6-1.2) mg/dl Est Cr Clr Drug Dosing 170.5 ml/min Est GFR ( Amer) 124.0 Est GFR (Non-Af Amer) 107.0 BUN/Creatinine Ratio 24.4 H (10-20) Glucose 80 (70-99) mg/dl Calcium 8.4 L (8.5-10.1) mg/dl Total Bilirubin 0.7 (0.2-1) mg/dl AST 16 (15-37) U/L ALT 26 (12-78) U/L Alkaline Phosphatase 67 (45-117) U/L Troponin I < 0.015 (0-0.045) ng/ml NT-Pro-B Natriuret Pep 139 (0-450) pg/ml Total Protein 7.8 (6.4-8.2) gm/dl Albumin 3.7 (3.4-5.0) gm/dl Globulin 4.1 H (2.5-4.0) gm/dl Albumin/Globulin Ratio 0.9 (0.9-2) Procalcitonin (0-0.5) ng/ml 10/17/18 10/17/18 10/17/18 Range/Units 14:11 14:11 14:11 WBC (4.8-10.8) K/uL RBC (4.2-5.4) M/uL Hgb (12.0-16.0) g/dL Hct (37-47) % MCV (80-100) fL MCH (25-34) pg MCHC (32-36) g/dL RDW Std Deviation (36.4-46.3) fL RDW Coeff of Adali (11.5-14.5) % Plt Count (130-400) K/uL MPV (7.4-10.4) fL Immature Gran % (Auto) % Neut % (Auto) % Lymph % (Auto) % Payette % (Auto) % Eos % (Auto) % Baso % (Auto) % Immature Gran # (Auto) (0.00-0.02) K/uL Neut # (Auto) (1.4-6.5) K/uL Lymph # (Auto) (1.2-3.4) K/uL Payette # (Auto) (0.11-0.59) K/uL Eos # (Auto) (0-0.5) K/uL Baso # (Auto) (0-0.2) K/uL PT (9.0-12.0) Seconds INR (0.9-1.1) D-Dimer 510 H* (0-500) ug/L FEU Sodium (136-145) mmol/L Potassium (3.5-5.1) mmol/L Chloride (98-107) mmol/L Carbon Dioxide (21-32) mmol/L Anion Gap (3-11) BUN (7-18) mg/dl Creatinine (0.6-1.2) mg/dl Est Cr Clr Drug Dosing ml/min Est GFR ( Amer) Est GFR (Non-Af Amer) BUN/Creatinine Ratio (10-20) Glucose (70-99) mg/dl Calcium (8.5-10.1) mg/dl Total Bilirubin (0.2-1) mg/dl AST (15-37) U/L ALT (12-78) U/L Alkaline Phosphatase (45-117) U/L Troponin I (0-0.045) ng/ml NT-Pro-B Natriuret Pep Cancelled (0-450) pg/ml Total Protein (6.4-8.2) gm/dl Albumin (3.4-5.0) gm/dl Globulin (2.5-4.0) gm/dl Albumin/Globulin Ratio (0.9-2) Procalcitonin < 0.05 (0-0.5) ng/ml Hospital Course (1) Pneumonia: Atypical pneumoniaimproved on doxycycline. Discharged on a full course of doxycycline, close PCP follow-up. In regards to her abnormal chest CT, and the splenomegaly, hopefully it is all reactive to an atypical infection, but obviously will need to be followed up as an outpatient until normal. Morbid obesity with BMI of 62discussed "the physics of weight loss" and gave her specific numbers to work off of. She expressed understanding of this. Full code - Heparin prophylaxis Stable for home, PCP next week. Total Time Total Time Spent Total Time Spent (In Minutes): Greater than 30 Discharge Plan Discharge Items Patient Disposition: Home - Self-Care Reason For Visit: PNEUMONIA,HYPOXIA Discharge Diagnosis: atypical pneumonia (see below) Condition: Fair Discharge Goals: Diagnostic testing Activity: Resume your previous activity Non-emergency contact: Primary Care Provider Call non-emergency contact if: you have any medication questions Follow-up/Referrals: Erika Salter CRNP [Primary Care Provider] - 10/23/18 10:30 am (Please, follow up at [facility] with Erika VALERA on MondayOctober 23 at 10:30 am. *If you need to change this appointment, call the office at [phone].) Diet: Regular Addtl Provider Instructions: Atypical pneumonia -This is a patchy pneumonia involving both lungs, it is the most common type of pneumonia in somebody in your age range, most commonly caused by bacteria such as mycoplasma -It is fairly easy to treat, and an antibiotic such as the [id number] and almost always works. -It will likely take the better part of a month free to feel better, the cough will likely slowly improve over a few weeks, and the shortness of breath quicker than that, but a nondescript feeling of fatigue may last until the early part of November -Take the doxycycline twice a day for another 9 days, next dose tomorrow morning. It usually sits fairly well, but if it seems to upset her stomach at all take it with food. The only other main side effect we watch for sun sensitivity, and that should not be relevant at this time of year Weight loss -As we discussed, there is a lot of myth and mystery as it relates to weight loss and weight gain. -Often the simplest way to look at this is through the eyes of the loss of physics, which states that energy cannot be created or destroyed, but only transferred into different forms. -For the human body, a calorie as a unit of energy (much like a dollar is a unit of currency, arbitrary but it gives you a building block to start with) -In general it takes burning off approximately 3500 ellie to lose a pound -Doing the math on you (Google basal energy expenditure and then plug-in age, height, weight, and gender) your body mendez about 2350 ellie in any given day, without any additional exercise. -The goal will be to burn off more calories than you take in, which can be done by taking in less calories or burning off more. -What you want to start to do is look at the calorie density of the food to eat, and add up how much she is taking in any given day. From there it will be easier to start to see what things add more calories to your body than you realize, and start to cut down on those or substitute foods that are less hard on your body -as a reasonable rule you will burn off about 100 ellie per mile that you walk, but of course with your ankles something such as pedaling on a recumbent bike, or walking in a warm water pool may be a more viable way to burn off energy Prescriptions: New doxycycline hyclate 100 mg capsule 100 mg PO BID Qty: 18 RF: 0 Continued diclofenac sodium 75 mg tablet,delayed release (DR/EC) 75 mg PO BID RF: 0 Stand-Alone Forms: [facility], Work/School Release (Inpt) Discharge Orders: Discharge Order (Routine); Ordered 10/18/18 Ordered By: Savage Booth Admission Data Admit Date/Time: 10/17/18 17:57 Attending Provider: Savage Booth Admit Provider: Angelito Moulton Primary Care Provider: Erika Salter Other Providers: Angelito Moulton Service: Medical Other Interventions: Discharge Summary Assessment (RN) Last Done: 10/18/18 17:30 DC Date/Time DO NOT enter until pt leaves facility: 10/18/18 17:55
== END 2018-10-18 17:55 | disposition home or self-care (01) | DRG 194 ==
LOC: ED 13:38 → SUATTDRO 17:57 → 2N 17:57
DX: M25.572 Pain in left ankle and joints of left foot; G89.29 Other chronic pain; J18.9 Pneumonia, unspecified organism; M25.571 Pain in right ankle and joints of right foot; E66.01 Morbid (severe) obesity due to excess calories; Z68.44 Body mass index [BMI] 60.0-69.9, adult